=== PATIENT | male | born 1970 | race American Indian/Alaskan Native ===

== ENCOUNTER 2017-11-03 18:29 | Emergency (ER) | payer OTHER, MEDICARE ==
[2017-11-03] MEDS ORDERED: MOTRIN PO ONE (22:02)
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
[2017-11-03 23:21] VITALS: BP 140/81
== END 2017-11-03 22:35 | disposition home or self-care (01) ==
LOC: ED 18:29
DX: S13.4XXA Sprain of ligaments of cervical spine, initial encounter (principal); S39.012A Strain of muscle, fascia and tendon of lower back, initial encounter; I10 Essential (primary) hypertension; E11.9 Type 2 diabetes mellitus without complications; E78.00 Pure hypercholesterolemia, unspecified; V89.2XXA Person injured in unspecified motor-vehicle accident, traffic, initial encounter; Y93.89 Activity, other specified; Y92.89 Other specified places as the place of occurrence of the external cause; Y99.8 Other external cause status
CPT/HCPCS: 99282